=== PATIENT | female | born 1970 | race Two or more races ===

== ENCOUNTER 2016-09-11 12:58 | Emergency (ER) | payer BC ==
[~2016-09-11] VITALS: Ht 165.1 cm; Wt 63.5 kg
[2016-09-11] MEDS ORDERED: IBUPROFEN 800 MG TABLET. PO ONE (13:45)
--- NOTE | 2016-09-11 13:48 | PHYS DOC ---
Past Medical History Past Medical History: No Pertinent History Past Surgical History: No Surgical History Alcohol Use: None Drug Use: None Adult General Chief Complaint Chief Complaint: LOWEREXTREMITY INJURY HPI HPI Patient is a 46 year old female resents to the emergency department stating that she was trying to walk up the stairs less than about midnight felt a pull in her right calf. She states that she is unable to bear weight or walk on the right calf since the incident. She is not taken anything for pain or discomfort. She denies any history of blood clots in the past, denies any control or any hormonal therapy. Patient has 2+ peripheral pulses. Cap refill brisk less than 2 seconds. Tenderness noted in the right calf area Review of Systems Review of Systems Constitutional: Denies fever or chills [] Eyes: Denies change in visual acuity, redness, or eye pain [] HENT: Denies nasal congestion or sore throat [] Respiratory: Denies cough or shortness of breath [] Cardiovascular: No additional information not addressed in HPI [] GI: Denies abdominal pain, nausea, vomiting, bloody stools or diarrhea [] : Denies dysuria or hematuria [] Musculoskeletal: Denies back pain or joint pain. C/o pain right calf [] Integument: Denies rash or skin lesions [] Neurologic: Denies headache, focal weakness or sensory changes [] Endocrine: Denies polyuria or polydipsia [] Current Medications Current Medications Current Medications Medications (Trade) Dose Ordered Sig/Jose Start Time Stop Time Status Last Admin Dose Admin Ibuprofen (Motrin) 800 mg 1X ONCE 09/11/16 13:45 09/11/16 13:48 DC Allergies Allergies Allergies Coded Allergies Type Severity Reaction Last Updated Verified Penicillins Allergy Mild rash 06/25/13 Yes Physical Exam Physical Exam Constitutional: Well developed, well nourished, no acute distress, non-toxic appearance. [] HENT: Normocephalic, atraumatic, bilateral external ears normal, oropharynx moist, no oral exudates, nose normal. [] Eyes: PERRLA, EOMI, conjunctiva normal, no discharge. [] Neck: Normal range of motion, no tenderness, supple, no stridor. [] Cardiovascular:Heart rate regular rhythm Lungs & Thorax: no respiratory distress noted Skin: Warm, dry, no erythema, no rash. [] Back: No tenderness Extremities: Right calf tenderness, no cyanosis, no clubbing, ROM intact, no edema. Cathi sign +. She'll with tenderness noted in the right calf area. No swelling no discoloration noted in the area. Pulses 2+ cap refill brisk less than 2 seconds. Neurologic: Alert and oriented X 3, normal motor function, normal sensory function, no focal deficits noted. [] Psychologic: Affect normal, judgement normal, mood normal. [] EKG EKG [] Radiology/Procedures Radiology/Procedures [][place] [id number] IMAGING REPORT Signed PATIENT: NICOLE DENNY ACCOUNT: [id number] : 1970 LOCATION: ER AGE: 46 SEX: F EXAM STATUS: REG ER ORD. PHYSICIAN: NELLIE ROLAND APRN REASON: + cathi signs pain to the calf PROCEDURE: VENOUS LOWER EXTREMITY RIGHT Indication pain. Grayscale color Doppler and spectral imaging was performed. The examination was targeted to the veins of the right lower extremity. The common femoral, femoral and popliteal vessels demonstrate normal flow compressibility and augmentation. No thrombus is seen. The calf veins appeared unremarkable. The left common femoral vein also appeared normal. IMPRESSION: Negative right lower extremity venous analysis for DVT DICTATED and SIGNED BY: LUCINA EMMANUEL MD DATE: 09/11/16 1436 CC: NELLIE ROLAND APRN; NO PCP ~ [address] [id number] IMAGING REPORT Signed PATIENT: NICOLE DENNY ACCOUNT: [id number] : 1970 LOCATION: ER AGE: 46 SEX: F EXAM STATUS: REG ER ORD. PHYSICIAN: NELLIE ROLAND APRN REASON: pain in the calf unable to bear weight on leg PROCEDURE: TIBIA FIBULA RIGHT Indication pain. AP and lateral views of the right tibia and fibula were obtained. No bony abnormality is seen DICTATED and SIGNED BY: LUCINA EMMANUEL MD DATE: 09/11/16 1437 CC: NELLIE ROLAND APRN; NO PCP ~ Course & Med Decision Making Course & Med Decision Making Pertinent Labs and Imaging studies reviewed. (See chart for details) Ultrasound was negative for DVT, x-ray was negative for any bony abnormalities. Patient will be discharged home with recommendations for Sonny wrap on for the next 5-7 days. Tylenol or ibuprofen for pain and discomfort. Also recommended elevation. Ice packs on 20 minutes off 20 minutes several times a day. There provided with orthopedic name and number to follow up with the continued have pain and discomfort in one week. Signs and symptoms to return back to emergency department as been provided. Patient agrees with discharge instructions treatment regimens and follow-up recommendations. [] Dragon Disclaimer Dragon Disclaimer This electronic medical record was generated, in whole or in part, using a voice recognition dictation system. Departure Departure Impression: Primary Impression: Right leg pain Disposition: 01 HOME, SELF-CARE Condition: STABLE Referrals: NON,STAFF (PCP) MIKE MEADE MD Patient Instructions: Muscle Strain, [id number] Additional Instructions: Activity as tolerated Ice packs on 20 minutes and off 20 minutes several times a day Elevation as much as possible Sonny wrap for the next week Followup with orthopedic in the next week if you continue to have pain Return to emergency department as needed for signs and symptoms that become worse. NELLIE ROLAND APRN Sep 11, 2016 13:48
--- NOTE | 2016-09-11 14:39 | RAD ---
Indication pain. Grayscale color Doppler and spectral imaging was performed. The examination was targeted to the veins of the right lower extremity. The common femoral, femoral and popliteal vessels demonstrate normal flow compressibility and augmentation. No thrombus is seen. The calf veins appeared unremarkable. The left common femoral vein also appeared normal. IMPRESSION: Negative right lower extremity venous analysis for DVT
--- NOTE | 2016-09-11 14:42 | RAD ---
Indication pain. AP and lateral views of the right tibia and fibula were obtained. No bony abnormality is seen
[2016-09-11 14:52] VITALS: BP 163/77
== END 2016-09-11 15:02 | disposition home or self-care (01) ==
LOC: ER 12:58
DX: M79.604 Pain in right leg (principal); Z88.0 Allergy status to penicillin
CPT/HCPCS: 73590; 93971; 99284-25